=== PATIENT | female | born 1975 | race Caucasian/White ===

== ENCOUNTER → 2020-02-28 14:30 | Outpatient (BNVA) | payer BC, OTHER, SELFPAY | PROVIDERS: Family Provider Family Medicine; PCP Family Medicine; Visit Provider Obstetrics & Gynecology | DX: Z12.4 Encounter for screening for malignant neoplasm of cervix (principal); Z12.39 Encounter for other screening for malignant neoplasm of breast | CPT/HCPCS: 88175 ==

== ENCOUNTER 2020-04-03 06:26 | Day surgery (SDC) | payer BC, OTHER, SELFPAY ==
[2020-04-01 12:48] VITALS: BMI 25.8
--- NOTE | 2020-04-03 06:36 | W.PM.OPSUD ---
Surgery/Procedure H&P Update DATE OF PROCEDURE: April 03, 2020 DATE H&P PERFORMED: 03/10/20 H&P UPDATE INFORMATION: I have reviewed H&P completed within last 30 days, I have examined patient prior to procedure and Changes to prior documentation as noted here CHANGES TO PREVIOUS DOCUMENTATION: Patient mentioned that she only had one bottle of magnesium citrate and the second 1 threw it up, she did have liquid stool and she believes that she had appropriate prep, patient was offered to postpone to have a better prep versus an attempt with the potential chance of aborting if the prep was suboptimal, patient elected to proceed with a screening colonoscopy today. PREOP DIAGNOSIS: The same PLANNED PROCEDURE: Operation Date: 04/03/20 07:20 Proposed Procedures p Colonoscopy 30607 Z12.11(Not Applicable) - Jeff Villarreal MD
[2020-04-03 06:45] VITALS: BP 121/83; PULSE 72; RESP 18; TEMP 37.3; O2SAT 98
[2020-04-03] MEDS: sodium chloride 0.9% 1,000 ML 30 ML IV (07:05)
[2020-04-03 07:07] LABS: OR HCG Qualitative Urine Negative (Negative)
--- NOTE | 2020-04-03 07:27 | P.ANESASSM_ITS ---
Pre-Anesthetic Assessment Pre-Anesthetic Assessment: Height/Weight: Height 1.73 m Weight 77.111 kg Temp Pulse Resp BP Pulse Ox 99.1 F 72 18 121/83 98 04/03/20 06:45 04/03/20 06:45 04/03/20 06:45 04/03/20 06:45 04/03/20 06:45 Preop Diagnosis: Screening colonoscopy Proposed Procedure: Operation Date: 04/03/20 07:20 Proposed Procedures p Colonoscopy 48260 Z12.11(Not Applicable) - Jeff Villarreal MD Was Beta Edin taken within 24 hours: N/A Last intake: Intake Last Liquid Date 04/02/20 Last Liquid Time 23:00 Last Solid Date 04/01/20 Last Solid Time 22:30 Social: Social History: No alcohol and No tobacco Exam: Pre-Anes Outpt Exam: alert, oriented x 3, clear to auscultation bilaterally and regular rate & rhythm Airway: Submandibular: WNL Cervical ROM: WNL MP: 2 Dentition: Partials (upper) History/ROS: No significant history except as noted Pulmonary: Pulmonary: Asthma (mild) CV/HEM: CV/HEM: None reported : : None reported Hepatic: Hepatic: None reported GI: GI: None reported Metabolic: Metabolic: None reported Musc/skel: Musc/skel: None reported Neuropsych: Neuropsych: None reported Anesthetic Plan: ASA status: 2 Anesthesia: MAC Meds/Allergies Current Medications: Current Medications Generic Name Dose Route Start Last Admin Trade Name Freq PRN Reason Stop Dose Admin Sodium Chloride 1,000 mls @ 30 ml s/hr 04/03/20 06:45 04/03/20 07:05 Sodium Chloride 0.9% IV 30 mls/hr .Q24H MADONNA Administration PFSH Anesthesia PFSH: Medical History (Updated 03/11/20 @ 16:10 by Jeff Villarreal MD) Abdominal pain Chronic diarrhea Endometriosis Diagnosed with chronic pelvic pain and laparoscopy on 05/13/2017. Symptoms are well controlled with suppressive hormones. No pertinent past medical history Denies history of: High blood pressure, Diabetes, heart, lung, liver,kidney, thyroid, bleeding problems, clotting problems PMD: Dr. Rebecca Browning for colon cancer Surgical History S/P laparoscopy (~05/13/17) Diagnostic laparoscopy performed on 05/13/[address] Clayton at [facility] for left lower quadrant pain. At time of surgery bilateral ovaries and tubes appeared normal, uterus appeared normal, small areas of blackish discoloration were noted on the posterior cul-de-sac along the uterosacral ligaments-on the right side. Clinically appeared to be endometriotic lesions. This was biopsied. Biopsy showed benign fibroadipose connective tissue with focal chronic inflammation. Anterior peritoneum and ovarian fossa as well as otherwise normal. Family History Mother Uterine cancer Diagnosed in March 2017; of same Hypertension Grandmother Stroke maternal Father Thyroid condition Denies family history of Colon cancer Ovarian cancer Diabetes Hyperlipidemia Breast cancer Social History Smoking and tobacco status: never smoked Alcohol intake: never Additional social history: - Tobacco Use: Denies current or past use Alcohol Use: Denies Drug Use: Denies Work/Study Status: Works communications officer; high school special education teacher at [employer] Female Reproductive History: Date of last menstrual period: 04/01/20 Data Anesthesia Other Labs: Laboratory Results - last 48 hr 04/03/20 07:06 Urine HCG, Qual Negative Cardiac Studies: No Data to Display
[2020-04-03 07:51] VITALS: BP 101/60; PULSE 58; RESP 16; TEMP 36.2; O2SAT 99
[2020-04-03 08:01] VITALS: BP 110/74; PULSE 65; RESP 16; O2SAT 100
== END 2020-04-03 08:09 | disposition home or self-care (01) ==
PROVIDERS: Anesthesiology; PCP Family Medicine; Visit Provider Surgery
PROC: 0DJD8ZZ Inspection of Lower Intestinal Tract, Via Natural or Artificial Opening Endoscopic (ICD-10-PCS; CPT 45378; principal; 2020-04-03 07:20)
DX: Z12.11 Encounter for screening for malignant neoplasm of colon (principal); J45.909 Unspecified asthma, uncomplicated
CPT/HCPCS: 12345; 45378; 84703; J2704; J7030

== ENCOUNTER 2020-12-24 14:10 | Outpatient (CLI) | payer BC, SELFPAY ==
--- NOTE | 2020-12-24 14:30 | MM_ITS ---
WS: [id number] DIAGNOSTIC BILATERAL DIGITAL MAMMOGRAM WITH CAD LEFT breast ultrasound, limited HISTORY: N63.20 - Unspecified lump in the left breast, unspecified quadrant COMPARISON: None available. TECHNIQUE: Bilateral craniocaudad, mediolateral oblique, and mediolateral views are submitted. Spot c ompression LEFT MLO. Computer aided detection utilized. Breast composition: The breasts are heterogeneously dense, which may obscure small masses. Palpable m arker is placed in the upper outer quadrant of the LEFT breast in the anterior depth. There is no und erlying mass. No distortion or calcification. LEFT breast ultrasound. There is a small cyst at 12:00, 2 cm from the nipple measuring 3 x 3 x 2 mm. There is an additional s mall cyst at 3:00, 3 cm from the nipple measuring 5 x x 7 x 4 mm. No solid mass. MM/[place] [id number] IMPRESSION: BI-RADS: 2-Benign FOLLOW UP: 1 Year Follow-up No solid mass identified in the LEFT breast. There are 2 benign cysts identifie d in the upper-outer quadrant.
--- NOTE | 2020-12-24 15:00 | US_ITS ---
WS: [id number] DIAGNOSTIC BILATERAL DIGITAL MAMMOGRAM WITH CAD LEFT breast ultrasound, limited HISTORY: N63.20 - Unspecified lump in the left breast, unspecified quadrant COMPARISON: None available. TECHNIQUE: Bilateral craniocaudad, mediolateral oblique, and mediolateral views are submitted. Spot c ompression LEFT MLO. Computer aided detection utilized. Breast composition: The breasts are heterogeneously dense, which may obscure small masses. Palpable m arker is placed in the upper outer quadrant of the LEFT breast in the anterior depth. There is no und erlying mass. No distortion or calcification. LEFT breast ultrasound. There is a small cyst at 12:00, 2 cm from the nipple measuring 3 x 3 x 2 mm. There is an additional s mall cyst at 3:00, 3 cm from the nipple measuring 5 x x 7 x 4 mm. No solid mass. US/US breast LT limited* [id number] IMPRESSION: BI-RADS: 2-Benign FOLLOW UP: 1 Year Follow-up No solid mass identified in the LEFT breast. There are 2 benign cysts identifie d in the upper-outer quadrant.
== END 2020-12-24 14:11 | disposition home or self-care (01) ==
PROVIDERS: PCP Family Medicine; Visit Provider Obstetrics & Gynecology
DX: N63.20 Unspecified lump in the left breast, unspecified quadrant (principal)
CPT/HCPCS: 76642; 77066

== ENCOUNTER 2021-05-19 14:54 | Outpatient (CLI) | payer BC, OTHER, SELFPAY ==
--- NOTE | 2021-05-19 15:04 | XR_ITS ---
WS: [id number] Exam: XR chest 2V* [id number] Date/Time of Exam: 05/19/2021 3:05 PM Reason For Exam: ADVENTITIOUS BREATH SOUNDS Findings: The lungs are clear and fully expanded. Costophrenic angles are sharp. No infiltrates. Bronchovascula r relief appears normal. Cardiac silhouette is unremarkable. Bony elements are intact. XR/XR chest 2V* [id number] IMPRESSION: Unremarkable chest radiograph.
== END 2021-05-19 14:55 | disposition home or self-care (01) ==
PROVIDERS: Visit Provider Clinical Nurse Specialist Adult Health
DX: R09.89 Other specified symptoms and signs involving the circulatory and respiratory systems (principal)
CPT/HCPCS: 71046

== ENCOUNTER 2022-03-02 11:09 | Outpatient (CLI) | payer BC, SELFPAY ==
--- NOTE | 2022-03-02 11:32 | MM_ITS ---
WS: [id number] SCREENING DIGITAL BREAST TOMOSYNTHESIS MAMMOGRAM WITH CAD HISTORY: Screening for malignancy. COMPARISON: 2020 Bilateral CC and MLO with tomosynthesis views submitted. Synthetic mammography reviewed. Computer aid ed detection analyzed. Breast composition: The breasts are heterogeneously dense, which may obscure small masses. No suspici ous masses, microcalcifications or architectural distortion. MM/[place] [id number] IMPRESSION: BI-RADS: 1-Negative FOLLOW UP: 1 Year Follow-up
== END 2022-03-02 11:10 | disposition home or self-care (01) ==
PROVIDERS: Visit Provider Obstetrics & Gynecology
DX: Z12.39 Encounter for other screening for malignant neoplasm of breast (principal)
CPT/HCPCS: 77063; 77067